=== PATIENT | female | born 1975 ===

== ENCOUNTER 2018-03-21 13:25 | Outpatient (CLI) | payer OTHER ==
--- NOTE | 2018-03-21 16:22 | MRI ---
MRI OF LEFT ANKLE PERFORMED WITHOUT CONTRAST ENHANCEMENT: Date: 03/23/18 HISTORY: Swelling over lateral side of ankle. Patient has had swelling since approximately 3 years after a fal l. FINDINGS: The Achilles tendon is normal in appearance. Anterior extensor tendons are normal in appearance. There are tenosynovitis changes of the flexor hallucis longus, flexor digitorum longus, and posterior tibialis tendon, all of which appear intact and not thickened. On the lateral side, there are tenosynovitis changes of the common peroneal tendon sheath. There coul d be a very small split tear of the peroneus brevis tendon seen. The tenosynovitis changes do extend along the course of the peroneus longus and brevis tendons. Somewhat prominent cystic changes arising from the lateral side of the sinus tarsi region, which also shows some mild induration of the fat. The posterior subtalar joint does not appear significantly na rrowed; however, the posterolateral process of the talus is somewhat elongated, and there are slightl y multiloculated fluid collections adjacent to this area which could indicate some element of impinge ment. There is also a mild ankle joint effusion, but no osteochondral lesion of the talar dome. There is evidence of disruption of the anterior talofibular ligament with synovitis change and what is pro bably scar in this region. The calcaneal fibular ligament appears intact. Posterior talofibular ligam ent is intact. The anterior syndesmotic ligament appear somewhat thickened. There are marrow edema ch anges associated with the talus along the more superior surface of the sinus tarsi, and more prominen t marrow edema changes near the attachment of the deep fibers of the deltoid which do appear intact. There is also adjacent marrow edema change of the medial malleolus. There are also some edema changes in the region of the superficial components of the deltoid ligament complex. The plantar fascia appears intact. Spring ligaments and Lisfranc ligament all appear intact. IMPRESSION: 1. Evidence for previous ankle injury with disruption of the anterior talofibular ligament, a thicke rey calcaneal fibular ligament, and thickening to the anterior syndesmotic ligament. There is also so me edema change and soft tissue changes anterior to the fibula in the region of the torn anterior keira ofibular ligament. This appears to represent edema change and probably some granulation tissue. This may be a cause for some anterolateral gutter impingement. 2. In addition to these changes, there is a somewhat elongated posterolateral process of the talus, and some multiloculated cysts that are seen in this region, which could indicate some element of post erior ankle impingement. 3. Marrow edema changes involving the talus as discussed above. 4. Incidental note is made of a small cyst along the dorsal capsule of the talonavicular joint with some minimal edema change of the dorsal side of the talus at this region. This could indicate that th is is a small bursa which has developed in this region related to more chronic irritation. 5. Some moderate tenosynovitis changes of the posterior tibialis, flexor digitorum longus, flexor van llucis longus, and peroneus longus and brevis tendons, with a questionable small split tear of the pe roneus brevis tendon. POS: [facility]
== END 2018-03-21 13:26 | disposition home or self-care (01) ==
LOC: BICMRI 13:25
PROVIDERS: ATTEND Family Medicine
DX: M25.572 Pain in left ankle and joints of left foot (principal); S93.492A Sprain of other ligament of left ankle, initial encounter; M79.89 Other specified soft tissue disorders; R60.0 Localized edema